=== PATIENT | male | born 1990 | race Caucasian/White ===

== ENCOUNTER 2019-07-17 23:50 | Emergency (ER) | payer SELFPAY ==
[~2019-07-17] VITALS: Ht 180.3 cm; Wt 81.8 kg
[~2019-07-17 23:50] MED LIST: ELEC100095 PO; LACT1CAP57 PO; ONDA4TAB14 PO
[2019-07-17 23:51] VITALS: Ht 180.3 cm; Wt 81.8 kg
[2019-07-18] MEDS ORDERED: ONDANSETRON 4 MG INJ IV STA (00:15)
[2019-07-18] MEDS ORDERED: SOD CHLORIDE 0.9% 1,000 ML IV STA (00:15)
[2019-07-18] MEDS ORDERED: morphine 4 MG/ML VIAL IV STA (00:15)
[2019-07-18 02:57] VITALS: BP 113/71; PULSE 64; RESP 18
== END 2019-07-18 02:59 | disposition home or self-care (01) ==
LOC: FTE 23:50
DX: K52.9 Noninfective gastroenteritis and colitis, unspecified (principal)
CPT/HCPCS: 36415; 80053; 81001; 83690; 85025; 96361; 96374; 96375; 99284; J2270; J2405; J7030